=== PATIENT | female | born 1970 | race Caucasian/White ===

== ENCOUNTER 2017-05-31 06:44 | Observation (INO) | payer BC ==
[~2017-05-31 06:44] MED LIST: Buffered Lidocaine 0.9% SYRIN* 5 ML/SYR SYRINGE INTRADERM ONE; Famotidine IV* 10 MG/ML 2 ML (20 mg) IV ONE; Metoclopramide TAB* 10 MG PO ONE
[2017-05-31] MEDS ORDERED: Metoclopramide TAB* 10 MG ONE (06:45)
[2017-05-31] MEDS ORDERED: Buffered Lidocaine 0.9% SYRIN* 5 ML/SYR SYRINGE ONE (06:45)
[2017-05-31] MEDS ORDERED: Famotidine IV* 10 MG/ML 2 ML (20 mg) ONE (06:45)
[2017-05-31] MEDS ORDERED: ceFAZolin 2 GM PREMIX (*) 50 ML IVPB ONE (06:45)
[2017-05-31] MEDS ORDERED: Lidocaine 2% PF * 5 ML VIAL ONE (07:19)
[2017-05-31] MEDS ORDERED: Ketorolac INJ* 30 MG/ML 1 ML VIAL ONE (07:19)
[2017-05-31] MEDS ORDERED: Rocuronium* 10 MG/ML VIAL ONE (07:19)
[2017-05-31] MEDS ORDERED: KETAMINE HCL* 50 MG/ML 10 ML VIAL ONE (07:19)
[2017-05-31] MEDS ORDERED: Ondansetron INJ* 2 MG/ML VIAL ONE ×2 (07:19→11:05)
[2017-05-31] MEDS ORDERED: Midazolam* 1 MG/ML 5 ML VIAL (5 MG) ONE (07:19)
[2017-05-31] MEDS ORDERED: Propofol* 10 MG/ML 20 ML BTL IV PUSH ONE (07:19)
[2017-05-31] MEDS ORDERED: fentaNYL* 50 MCG/ML 5 ML VIAL (250 MCG VIAL) ONE (07:19)
[2017-05-31] MEDS ORDERED: Dexamethasone IV* 4 MG/ML 1 ML (4 MG) ONE (07:19)
[2017-05-31] MEDS ORDERED: Bupivacaine 0.5% SDV PF* 30 ML VIAL ONE (08:11)
[2017-05-31] MEDS ORDERED: fentaNYL* 50 MCG/ML 2 ML VIAL (100 MCG VIAL) ONE ×3 (08:36→11:23)
[2017-05-31] MEDS ORDERED: Glycopyrrolate IV* 0.2 MG/ML 1 ML VIAL ONE (09:40)
[2017-05-31] MEDS ORDERED: Neostigmine Methylsulfate* 2 MG/2 ML SYRINGE ONE (09:40)
[2017-05-31] MEDS ORDERED: oxyCODONE/Acetamin 5/325 MG* TAB PO PRN ×2 (09:41→10:20)
[2017-05-31] MEDS ORDERED: HYDROmorphone INJ* 1 MG/ML CARPUJECT SYRINGE IV PRN (09:41)
[2017-05-31] MEDS ORDERED: Ondansetron INJ* 2 MG/ML VIAL IV PRN (09:41)
[2017-05-31] MEDS ORDERED: fentaNYL* 50 MCG/ML 2 ML VIAL (100 MCG VIAL) IV PRN (09:41)
[2017-05-31] MEDS ORDERED: DiMENhydriNATE IV* 50 MG/ML VIAL IV PUSH PRN (09:41)
[2017-05-31] MEDS ORDERED: HYDROmorphone INJ* 1 MG/ML CARPUJECT SYRINGE ONE (09:43)
[2017-05-31] MEDS: Ibuprofen TAB* 600 MG PO PRN (17:07)
[2017-06-01] MEDS: Ibuprofen TAB* 600 MG PO PRN (04:24)
[2017-06-01 07:49] VITALS: BP 116/51
--- NOTE | 2017-06-01 07:55 | OP ---
CC: Dr. Ciaran Coker of [facility] OPERATIVE REPORT: DATE OF OPERATION: 05/31/17 DATE OF : 70 SURGEON: Navi Nava MD PROFESSIONAL [employer]: Ciaran Coker MD ANESTHESIA: Spinal. PRE-OP DIAGNOSES: Abnormal uterine bleeding and uterine fibroids. POST-OP DIAGNOSES: Abnormal uterine bleeding and uterine fibroids. OPERATIVE PROCEDURE: Laparoscopic supracervical hysterectomy and bilateral salpingectomy. ESTIMATED BLOOD LOSS: Minimal. SPECIMEN SENT TO PATHOLOGY: A morcellated uterus, fibroids, and fallopian tubes. IV FLUIDS: She received 2 L of IV crystalloid fluids. URINE OUTPUT: 400 cc of clear urine. FINDINGS: Laparoscopic findings reveal an enlarged and irregularly shaped uterus with a 3 or 4 cm r ight fundal subserosal myoma. There were normal tubes and ovaries bilaterally. There was normal jamshid wel and bladder and there were no complications. DESCRIPTION OF PROCEDURE: The patient was taken to the operating room where she was identified. Ramana fletcher was placed on operating table where a general anesthetic with endotracheal intubation was obtained without difficulty. She was then placed in a dorsal lithotomy position, prepped and draped in norm al sterile fashion. Attention was then brought on to the patient's perineum where the bladder was c atheterized with a Aguilera catheter and drained of urine. A side view speculum was inserted into the patient's vagina. The cervix was identified, grasped with a single-toothed tenaculum, and through t he cervix, a ClearView uterine manipulator was introduced. The balloon and the manipulator was insuf flated with 4 cc of sterile water. At this point, the single-tooth tenaculum and the speculum were removed from the patient's vagina. Attention was then brought on to the patient's abdomen, where a 3 cm infraumbilical skin incisions were made with a knife vertically. The incision was opened blunt ly until the fascia was palpable. The fascia was then grasped with Josh clamps, brought up to the incision, and incised medially with a knife. Entry into the patient's abdomen through the peritoneu m was then confirmed using Niés clamp. The Josh clamps on the fascia were then replaced with 0 P olysorb sutures. At this point, we proceeded to extend the fascial incision 4 cm in a transverse fa shion with a curved Tolentino scissors. Through this incision, a large GelPOINT single port device was i ntroduced through the umbilicus. There were 3 ports that were inserted into the GelPOINT device, on e for the camera and 2 for laparoscopic instruments. The port was then attached to air and the sophia ent's abdomen was then insufflated with CO2 gas. At this point, a 5-mm camera was introduced throug h the umbilical port and the patient was then placed in a Trendelenburg position. A survey of the p atient's pelvis and abdomen was noted. The gallbladder was noted to be within normal limits as well as the liver edge and the pelvic anatomy was noted as above. At this point, we proceeded to perform a salpingectomy bilaterally. This was done with LigaSure device where the serosal attachment to th e fallopian tubes and ovaries were grasped, coagulated, and transected sharply until the entire fall opian tube was removed. The fallopian tubes were then removed with the GelPOINT device and sent to pathology. We then proceeded with the hysterectomy where the round ligaments were grasped bilateral ly with the LigaSure, they were clamped, coagulated and transected sharply bilaterally. This was al so done with the utero-ovarian ligament with the LigaSure. Then we proceeded to make a window on the anterior leaf of the broad ligament bilaterally with LigaSure. The anterior leaf of the broad liga ment was then dissected with sharp dissection and coagulation towards the bladder. A bladder flap w as created, the bladder was then mobilized away from the lower uterine segment. We then proceeded t o identify the uterine arteries bilaterally. These were grasped with LigaSure, coagulated, and arana sected. Once we have noted that the uterus was blanching from its lack of blood supply from the tuscarora rine arteries, we proceeded to introduce a SupraLoop to the GelPOINT device. The SupraLoop was then wrapped around the upper most portion of the cervix in its attachment to the lower uterine segment. The SupraLoop was then charged at 110 pure cut and uterus was then transected from the cervix. Th e uterus was then mobilized away from the pelvis. All the pedicles were noted to be completely hemo static. At this point, we then proceeded to introduce an Endobag into the patient's abdomen into wh ich the uterus was placed. The Endobag was introduced through the umbilicus, it was then removed th rough the umbilicus and a plastic shield was placed at the side of the umbilical incision so that we were able to then morcellate the uterus and remove it from the bag, the bag remained intact and the specimen was then sent to pathology. At this point, the bag was removed from the patient's abdomen as well. We proceeded to take a second look with the laparoscope. All the pedicles were noted to b e completely hemostatic. There was no bleeding. We irrigated with a small amount of irrigation flu id. Irrigation fluid was then suctioned and at this point, we proceeded to remove all the instrumen ts from the patient's abdomen. The fascial incision at the umbilicus was closed with 0 Polysorb sut ure in a running locked fashion. The umbilical incision was closed with 4-0 Monocryl and a subcutic ular stitch. Prior to transection of the uterus from the cervix, we had removed the ClearView manip ulator. At this point, all the instruments were removed from the patient's abdomen. Sponge, lap, n eedle counts were correct x2. The patient was then transferred to recovery area in stable condition . [id number]/[facility] #: [id number]
[2017-06-01 08:14] LABS: Hematocrit 26 % (35-47); Hemoglobin 8.3 g/dl (12.0-16.0); Mean Corpuscular HGB Conc 32 g/dl (31-36); Mean Corpuscular Hemoglobin 23 pg (27-31); Mean Platelet Volume 9 um3 (7.4-10.4); Red Blood Count 3.63 10^6/ul (4.0-5.4); Red Cell Distribution Width 18 % (10.5-15); White Blood Count 12.8 10^3/ul (3.5-10.8)
[2017-06-01 08:15] LABS: Comments Flag Yes; Mean Corpuscular Volume 71 fL (80-97)
--- NOTE | 2017-06-14 10:33 | DS ---
DISCHARGE SUMMARY: DATE OF ADMISSION: 05/31/17 DATE OF DISCHARGE: 06/01/17 PRINCIPAL DIAGNOSES: Abnormal uterine bleeding and uterine fibroids. PROCEDURES: She underwent a laparoscopic supracervical hysterectomy and bilateral salpingectomy. CONDITION ON DISCHARGE: Her condition upon discharge was stable with stable vital signs. Afebrile, tolerating regular diet, tolerating p.o. medications, ambulating without difficulty, and voiding without any difficulty. PATHOLOGY REPORT: Pending on discharge. INSTRUCTIONS: She was given discharge instructions to follow up with my office after discharge to home. PERTINENT LABS: On discharge, she has had a complete blood cell count with a white count of 12.8, hemoglobin and hematocrit of 8.3/26, and platelet count of 282. Please refer to the patient's discharge packet for a summary of her discharge instructions and medications. [id number]/[facility] #: [id number] MTDD
== END 2017-06-01 10:15 | disposition home or self-care (01) ==
LOC: OR 06:44 → SSU 12:12
PROVIDERS: ADMIT Obstetrics & Gynecology; ATTEND Obstetrics & Gynecology
PROC: 0UT74ZZ Resection of Bilateral Fallopian Tubes, Percutaneous Endoscopic Approach (ICD-10-PCS; 2017-05-31)
PROC: 0UT94ZZ Resection of Uterus, Percutaneous Endoscopic Approach (ICD-10-PCS; principal; 2017-05-31 07:45)
DX: N93.9 Abnormal uterine and vaginal bleeding, unspecified (principal); D25.9 Leiomyoma of uterus, unspecified
CPT/HCPCS: 36415; 85025; 88307; 96374; 96375; A9270-GY; G0378; J0690; J1100; J1170; J1885; J2250; J2405; J2704; J3010